=== PATIENT | male | born 1955 | race Caucasian/White ===

== ENCOUNTER 2023-05-03 15:43 | Emergency (ER) | payer MEDICARE, SELFPAY ==
[2023-05-03 15:47] VITALS: BP 153/78; PULSE 58; RESP 18; TEMP 36.6; O2SAT 99; BMI 29.1
--- NOTE | 2023-05-03 15:57 | CRLHL7_ITS ---
For Patients: As a result of the Century Cures Act, medical imaging exams and procedure reports are released immediately into your electronic medical record. You may view this report before your referring provider. If you have questions, please contact your health care provider. Indication: Fall. Pain. Technique: Three views of the left shoulder. Comparison: None Findings/Impression: Comminuted fracture of the left humeral neck, with several fracture fragments including displacement of the lesser tuberosity. The surgical neck and part of the anatomical neck are involved, and there appears to be intra-articular extension into the inferior aspect of the left glenohumeral joint. Left acromioclavicular joint appears intact. Visualized portions of the left lung are clear. Dictated by Ari Gomez MD @ 05/03/2023 5:15:03 PM (Electronically Signed)
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
[2023-05-03] MEDS: KETOROLAC 30 MG/ML inj IM (16:10)
[2023-05-03 17:28] VITALS: BP 110/77; PULSE 69; RESP 16; O2SAT 98
== END 2023-05-03 18:46 | disposition home or self-care (01) ==
PROVIDERS: Emergency Provider Student in an Organized Health Care Education/Training Program
DX: S42.202A Unspecified fracture of upper end of left humerus, initial encounter for closed fracture (principal); V19.3XXA Pedal cyclist (driver) (passenger) injured in unspecified nontraffic accident, initial encounter
CPT/HCPCS: 73030; 96372; 99283; J1885